=== PATIENT | female | born 1975 | race Caucasian/White ===

== ENCOUNTER 2022-04-09 13:22 | Emergency (ER) | payer SELFPAY ==
[~2022-04-09] VITALS: Ht 157.5 cm; Wt 94.3 kg
--- NOTE | 2022-04-09 13:44 | ED Chest Pain ---
General Chief Complaint: Chest Pain Stated Complaint: SOB, CHEST PAIN, BP 122/98 Nursing Triage Note: PT AMB TO [facility] 9 WITH COMPLAINT OF CP THAT STARTED SUNDAY. STATES SHE HAS ALSO BEEN HAVING SOB AND COUGHING. STATES BP HAS BEEN HIGH AT HOME. History of Present Illness Date Seen by Provider: Apr 09, 2022 Time Seen by Provider: 13:30 Initial Comments Patient is a 46-year-old female who presents to the emergency department with chest pain that began on Sunday. She states she was resting when the pain began. She denies any exacerbating symptoms. She states she has also felt very anxious since that time. Also denies some cough and mild shortness of air. Denies any exertional worsening of the pain. States the pain does not worsen or improve with leaning forward or other position changes. States the pain initially is constant but then she states it does come and go. It is substernal in location. She states she does sometimes have some mid back pain but denies any tearing sensation. Denies any radiation of the pain anywhere else. She has not taken anything for the symptoms. States she sometimes takes valerian root in an attempt to help with her anxiety. She was at the [facility] clinic today where she was encouraged to present to the emergency department for further evaluation of her chest pain. An EKG was obtained there that reveals no acute ischemic changes. There was mild tachycardia noted. Allergies and Home Medications Allergies Coded Allergies: Penicillins (Verified Allergy, Unknown, 04/09/22) Sulfa (Sulfonamide Antibiotics) (Verified Allergy, Unknown, 04/09/22) Patient Home Medication List Home Medication List Reviewed: Yes Review of Systems Review of Systems Constitutional: no symptoms reported EENTM: No Symptoms Reported Respiratory: See HPI, Cough, Shortness of Air Cardiovascular: See HPI, Chest Pain Gastrointestinal: No Symptoms Reported Genitourinary: No Symptoms Reported Musculoskeletal: no symptoms reported Skin: no symptoms reported Psychiatric/Neurological: See HPI, Anxiety Past Aioicae-Vfslrx-Fhcvvo Hx Patient Social History Tobacco Use?: Yes Tobacco type used: Cigarettes Smoking Status: Current Everyday Smoker Use of E-Cig and/or Vaping dev: No Substance use?: No Alcohol Use?: No Pt feels they are or have been: No Immunizations Up To Date First/Initial COVID19 Vaccinat: NO Physical Exam Vital Signs Vital Signs - First Documented 04/09/22 13:30 Pulse 103 B/P (MAP) 136/106 (116) Pulse Ox 99 O2 Delivery Room Air Capillary Refill : Less Than 3 Seconds Height, Weight, BMI Height: '" Weight: lbs. oz. kg; 38.00 BMI Method: General Appearance: No Apparent Distress, WD/WN HEENT: PERRL/EOMI, TMs Normal, Normal ENT Inspection, Pharynx Normal Respiratory: Chest Non Tender, Lungs Clear, Normal Breath Sounds, No Accessory Muscle Use, No Respiratory Distress Cardiovascular: Regular Rate, Rhythm Neurologic/Psychiatric: Alert, Oriented x3, No Motor/Sensory Deficits, Normal Mood/Affect Skin: Normal Color, Warm/Dry Progress/Results/Core Measures Results/Orders Lab Results Laboratory Tests Test 04/09/22 13:35 Range/Units White Blood Count 8.1 4.3-11.0 10^3/uL Red Blood Count 4.52 3.80-5.11 10^6/uL Hemoglobin 13.7 11.5-16.0 g/dL Hematocrit 39 35-52 % Mean Corpuscular Volume 87 80-99 fL Mean Corpuscular Hemoglobin 30 25-34 pg Mean Corpuscular Hemoglobin Concent 35 32-36 g/dL Red Cell Distribution Width 12.1 10.0-14.5 % Platelet Count 339 130-400 10^3/uL Mean Platelet Volume 8.9 L 9.0-12.2 fL Immature Granulocyte % (Auto) 0 % Neutrophils (%) (Auto) 69 42-75 % Lymphocytes (%) (Auto) 21 12-44 % Monocytes (%) (Auto) 6 0-12 % Eosinophils (%) (Auto) 3 0-10 % Basophils (%) (Auto) 1 0-10 % Neutrophils # (Auto) 5.6 1.8-7.8 10^3/uL Lymphocytes # (Auto) 1.7 1.0-4.0 10^3/uL Monocytes # (Auto) 0.5 0.0-1.0 10^3/uL Eosinophils # (Auto) 0.2 0.0-0.3 10^3/uL Basophils # (Auto) 0.1 0.0-0.1 10^3/uL Immature Granulocyte # (Auto) 0.0 0.0-0.1 10^3/uL Prothrombin Time 13.2 12.2-14.7 SEC INR Comment 1.0 0.8-1.4 Activated Partial Thromboplast Time 26 24-35 SEC Sodium Level 138 135-145 MMOL/L Potassium Level 4.2 3.6-5.0 MMOL/L Chloride Level 104 98-107 MMOL/L Carbon Dioxide Level 20 L 21-32 MMOL/L Anion Gap 14 5-14 MMOL/L Blood Urea Nitrogen 10 7-18 MG/DL Creatinine 0.85 0.60-1.30 MG/DL Estimat Glomerular Filtration Rate 87 BUN/Creatinine Ratio 12 Glucose Level 101 70-105 MG/DL Calcium Level 9.5 8.5-10.1 MG/DL Corrected Calcium 9.3 8.5-10.1 MG/DL Magnesium Level 1.7 1.6-2.4 MG/DL Total Bilirubin 1.0 0.1-1.0 MG/DL Aspartate Amino Transf (AST/SGOT) 21 5-34 U/L Alanine Aminotransferase (ALT/SGPT) 27 0-55 U/L Alkaline Phosphatase 75 40-136 U/L Troponin I < 0.028 <0.028 NG/ML Total Protein 7.4 6.4-8.2 GM/DL Albumin 4.3 3.2-4.5 GM/DL My Orders Orders - BRANDON LAWSON AMMUNITION SPECIALIST Cbc With Automated Diff (04/09/22 13:44) Magnesium (04/09/22 13:44) Chest 1 View, Ap/Pa Only (04/09/22 13:44) Ekg Tracing (04/09/22 13:44) Comprehensive Metabolic Panel (04/09/22 13:44) Protime With Inr (04/09/22 13:44) Partial Thromboplastin Time (04/09/22 13:44) O2 (04/09/22 13:44) Monitor-Rhythm Ecg Trace Only (04/09/22 13:44) Ed Iv/Invasive Line Start (04/09/22 13:44) Troponin I Mccreary (04/09/22 13:44) Aspirin Chewable Tablet (Baby Aspirin Ch (04/09/22 13:45) Medications Given in ED Current Medications Medications Dose Ordered Sig/Olamide Route Start Time Stop Time Status Last Admin Dose Admin Aspirin 324 mg ONCE ONCE PO 04/09/22 13:45 04/09/22 13:46 DC 04/09/22 13:56 324 MG Vital Signs/I&O 04/09/22 13:30 Pulse 103 B/P (MAP) 136/106 (116) Pulse Ox 99 O2 Delivery Room Air Blood Pressure Mean: 116 Progress Progress Note : Progress Note Patient is nontoxic and well-hydrated on exam. No adventitious lung sounds or increased work of breathing noted. Peripheral pulses are strong and regular. Vital signs are reassuring without hypoxia or marked tachypnea/tachycardia. Patient does appear quite anxious and does state she feels like she has intermittent tingling in her bilateral arms/hands. She is not hyperventilating at the time of my exam. Laboratory evaluation is very reassuring. Troponin is negative. Chest x-ray without any acute findings. Had a lengthy discussion regarding these findings. Patient states that she thinks a large portion of her symptomology may be related to her anxiety. She states she was on lisinopril until a few months ago when she self discontinued this medication. She is requesting a refill. I stated I would give her a short-term refill until she was able to follow-up with her PCP. Return precautions for urgent symptomology discussed. Patient verbalized understanding. Departure Impression Primary Impression: Chest pain Qualified Codes: R07.9 - Chest pain, unspecified Disposition: 01 HOME, SELF-CARE Condition: Stable Departure-Patient Inst. Decision time for Depature: 14:50 Referrals: [facility] (PCP) Primary Care Physician Patient Instructions: Chest Pain (DC) Scripts Lisinopril (Lisinopril) 10 Mg Tablet 10 MG PO DAILY for 21 Days, #21 TAB 0 Refills Prov: BRANDON LAWSON APRN 04/09/22 BRANDON LAWSON APRN Apr 09, 2022 13:43
[2022-04-09] MEDS ORDERED: ASPIRIN 81 MG CHEW (CHILDREN'S ASA) PO ONE (13:45)
[2022-04-09 13:51] LABS: BASOPHILS # (AUTO) 0.1 10^3/uL (0.0-0.1); BASOPHILS % (AUTO) 1 % (0-10); EOSINOPHILS # (AUTO) 0.2 10^3/uL (0.0-0.3); EOSINOPHILS % (AUTO) 3 % (0-10); HEMATOCRIT 39 % (35-52); HEMOGLOBIN 13.7 g/dL (11.5-16.0); LYMPHOCYTES # (AUTO) 1.7 10^3/uL (1.0-4.0); LYMPHOCYTES % (AUTO) 21 % (12-44); MEAN CORPUSCULAR HEMOGLOBIN 30 pg (25-34); MEAN CORPUSCULAR HGB CONC 35 g/dL (32-36); MEAN CORPUSCULAR VOLUME 87 fL (80-99); MEAN PLATELET VOLUME 8.9 fL (9.0-12.2); MONOCYTES # (AUTO) 0.5 10^3/uL (0.0-1.0); MONOCYTES % (AUTO) 6 % (0-12); NEUTROPHILS # (AUTO) 5.6 10^3/uL (1.8-7.8); NEUTROPHILS % (AUTO) 69 % (42-75); PLATELET COUNT 339 10^3/uL (130-400); WHITE BLOOD COUNT 8.1 10^3/uL (4.3-11.0)
--- NOTE | 2022-04-09 13:59 | Diagnostic Imaging Report ---
CLINICAL INDICATIONS: Patient with chest pain that started Sunday. EXAM: Portable chest x-ray upright view. COMPARISON: None. FINDINGS: Lungs/pleura: Likely calcified granuloma in the right lung apex. Otherwise, lungs are clear. There is no pneumothorax. There is no pleural effusion. Mediastinum: Unremarkable. Pulmonary vasculature: Unremarkable. Heart: Unremarkable. Bones/extrathoracic soft tissue: Unremarkable. IMPRESSION: There is no radiographic evidence of acute cardiopulmonary process. Dictated by: Dictated on workstation # [id number]
[2022-04-09 14:06] LABS: ALBUMIN 4.3 GM/DL (3.2-4.5)
[2022-04-09 14:07] LABS: POTASSIUM 4.2 MMOL/L (3.6-5.0)
[2022-04-09 14:08] LABS: CALCIUM 9.5 MG/DL (8.5-10.1)
[2022-04-09 14:09] LABS: PROTHROMBIN TIME PATIENT 13.2 SEC (12.2-14.7); TOTAL PROTEIN 7.4 GM/DL (6.4-8.2)
[2022-04-09 14:13] LABS: CREATININE SERUM 0.85 MG/DL (0.60-1.30)
[2022-04-09 14:15] LABS: MAGNESIUM 1.7 MG/DL (1.6-2.4)
[2022-04-09] MEDS ORDERED: LISI10TA25 PO (14:52)
[2022-04-09 15:00] VITALS: BP 129/102
== END 2022-04-09 15:00 | disposition home or self-care (01) ==
LOC: ER 13:26
DX: R07.9 Chest pain, unspecified (principal); F17.210 Nicotine dependence, cigarettes, uncomplicated
CPT/HCPCS: 36415; 71045; 80053; 83735; 84484; 85025; 85610; 85730; 93041